=== PATIENT | female | born 1935 | race Caucasian/White ===

== ENCOUNTER 2017-02-03 12:34 | Emergency (ER) | payer OTHER ==
[2017-02-03] MEDS ORDERED: ASPIRIN PO STA (12:45)
[2017-02-03] MEDS ORDERED: NITROGLYCERIN SL PRN (12:45)
--- NOTE | 2017-02-03 12:56 | ED EKG INTERP ---
EKG Interpretation - EKG Time of EKG reading by physician:: 12:39 EKG Read and Signed by:: Demarco Perla EKG Interpretation (*Must complete 3 of following elements*): Abnormal Rate: 57 Rhythm: A-fib with SVR [place]: left ST Wave: non-specific ST changes Attestation - Scribe Verification/Attestation Scribe:: Dejuan Shah Acting as Scribe for:: Demarco Perla Scribe documention review:: This chart was documented by a scribe and accurately reflects the service the provider performed and the decisions made by the provider. Physician Attestation - Physician Attestation I, the provider, attest to the following statement:: Demarco Perla Physician documentation Attestation:: This documentation recorded by the scribe accurately reflects the service I personally performed and the decisions made by me.
[2017-02-03 13:10] LABS: MANUAL DIFF NEEDED? NO
[2017-02-03 13:15] LABS: BASO% 0.3 % (0.0-0.8); EOS# 0.04 X1000 (0.0-0.7); EOS% 0.7 % (0.0-10.0); HEMATOCRIT 50.8 % (37.0-47.0); HEMOGLOBIN 16.7 g/dL (12.0-16.0); LYMPH# 1.69 X1000 (1.2-3.4); LYMPH% 29.2 % (20.5-51.1); MCH 30.7 PG (27-31); MCHC 32.9 g/dL (33-37); MCV 93.4 FL (81-99); MONO# 0.42 X1000 (0.11-0.59); MONO% 7.3 % (1.7-9.3); MPV 11.3 FL (7.4-10.4); NEUT% 62.5 % (42.2-75.2); PLT 103 X1000 (130-400); RBC 5.44 XMIL (4.2-5.4)
[2017-02-03 13:42] LABS: ALBUMIN 4.4 g/dL (3.5-5.0); CALCIUM 9.4 mg/dL (8.8-10.2); MAGNESIUM 2.2 mg/dL (1.5-2.7); TOTAL BILIRUBIN 1.16 mg/dL (0.20-1.00); TOTAL PROTEIN 8.2 g/dL (6.3-8.3)
--- NOTE | 2017-02-03 15:03 | EKG Report ---
Test Performed on : 02/03/2017 12:39:36 PM Test Reason : Chest Pain Blood Pressure : / mmHG Vent. Rate : 057 BPM Atrial Rate : 039 BPM P-R Int : 000 ms QRS Dur : 084 ms QT Int : 390 ms P-R-T Axes : 000 -45 261 degrees QTc Int : 379 ms Atrial fibrillation. with slow ventricular response. Left axis deviation Possible Anterior infarct , age undetermined Abnormal ECG When compared with ECG of 26-MAY-2015 07:46, Borderline criteria for Anterior infarct are now present QT has shortened Unconfirmed Result
--- NOTE | 2017-02-03 15:36 | PROVIDER DOCUMENTATION ---
HPI-Chest Pain - General Chief Complaint: Chest Pain Stated Complaint: CP,SOB,ARM PAIN Time Seen by Provider: 02/03/17 14:27 Source: patient Allergies/Adverse Reactions: Patient Allergies Allergy/AdvReac Type Severity Reaction Status Date / Time codeine Allergy Unknown Unknown Verified 02/03/17 16:05 acetaminophen [From Tylenol] AdvReac NAUSEA Verified 02/03/17 16:05 Home Medications: Home Medication List Medication Instructions Recorded Confirmed Last Taken Type Aspirin 325 mg PO DAILY 02/11/14 02/03/17 05/25/15 08:00 History Digoxin [Digox] 125 mcg PO DAILY 02/11/14 02/03/17 05/25/15 08:00 History Diltiazem C.d. [Cardizem Cd] 120 mg PO DAILY 02/11/14 02/03/17 05/25/15 08:00 History Metoprolol [Lopressor] 25 mg PO BID 02/11/14 02/03/17 05/25/15 08:00 History Gabapentin [Neurontin] 400 mg PO TID #90 capsule 05/30/15 02/03/17 Unknown Rx Meclizine [Antivert] 25 mg PO TID PRN #30 tablet 05/30/15 02/03/17 Unknown Rx Methocarbamol [Robaxin-750] 750 mg PO Q6H PRN PRN #30 tablet 05/30/15 02/03/17 Unknown Rx Warfarin [Coumadin] 2 mg PO QHS #30 tablet 05/30/15 02/03/17 Unknown Rx - History of Present Illness-CP Nature of Presenting Problem: patient is a 81 yo F that presents that to the ER with 3 days of substernal chest pain that radiates to her back and shoulders. She reports also productive cough( white sputum) and n/v. patient reports pain increases with movement. Denies any diaphoresis or fever/chills. Location: reports: substernal Chest Pain Radiation: reports: shoulders, back Quality of Pain: reports: aching, dull Severity in ED: mild, moderate Onset/Duration: gradual, 3 days ago, 4 days ago Timing: still present, constant Context/Activities at Onset: reports: none Modifying Factors: worse with: movement Associated Symptoms: reports: nausea, shortness of breath, vomiting. denies: back pain, diaphoresis, dizziness, fatigue, fever/chills, swelling/lump in chest Nitro Today/Relief: 0.4 mg x 1, provided by ED Aspirin Treatment Today: 325 mg x 1, provided by ED Prior Chest Pain/Cardiac Workup: reports: other (a-fib) Recently Seen Here or By Another Healthcare Provider: No Review of Systems - Adult - REVIEW OF SYSTEMS - ADULT Constitutional: denies: chills, fever Eyes: reports: no symptoms reported Ears, Nose, Mouth & Throat: denies: ear discharge, ear pain, sinus problem, throat pain, throat swelling Cardiovascular: reports: chest pain. denies: palpitations, syncope Respiratory: reports: cough, excessive sputum production, pleurisy, shortness of breath. denies: wheezing Gastrointestinal: reports: nausea, vomiting. denies: abdominal pain, diarrhea Genitourinary: reports: no symptoms reported Musculoskeletal: reports: no symptoms reported Integumentary: reports: no symptoms reported Neurological: reports: no symptoms reported Psychiatric: reports: no symptoms reported Endocrine: reports: no symptoms reported Hematologic/Lymphatic: reports: no symptoms reported Allergic/Immunologic: reports: no symptoms reported All Other Systems: Reviewed and Negative Past History - Adult - PAST MEDICAL HISTORY-ADULT Review of Records: reports: Old Records Reviewed, Nursing Assessment Review, Medications Reviewed Cardiovascular: reports: A-Fib, HTN Neurological: reports: CVA Endocrine/Immune: reports: thyroid disorder (hypothyroid ) Other Conditions: reports: cataract/glaucoma (hx ) Additional History: inner ear problems - PRIOR SURGERIES/PROCEDURES Surgical/Procedure History: reports: appendectomy, cholecystectomy, hysterectomy , joint replacement (total hip replacement/total knee replacement), other ( cataract removal/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) - IMMUNIZATION STATUS Childhood Immunizations: See Nurse Assessment Flu Vaccine: See Nurse Assessment - FAMILY HISTORY Family History: reviewed, not pertinent - SOCIAL HISTORY Smoking: quit greater than 1 year, cigarettes Living Situation: family Physical Exam-General - PHYSICAL EXAM-ADULT Initial Vital Signs Reviewed: Yes - CONSTITUTIONAL General Appearance: alert, no apparent distress - EYES Eyes: PERRL/EOMI, pink conjunctivae - HEAD, EARS, NOSE, MOUTH & THROAT HENMT: normocephalic/atraumatic, moist mucous membranes, normal ENT inspection - NECK Neck: full range of motion, normal inspection. negative: lymphadenopathy - RESPIRATORY Respiratory: chest non-tender, lungs clear, normal breath sounds, no respiratory distress, no accessory muscle use - CARDIOVASCULAR Cardiovascular: no gallop, no murmur - GASTROINTESTINAL (ABDOMEN) Abdominal Exam: normal bowel sounds, non tender, soft - MUSCULOSKELETAL Extremity: normal range of motion, no pedal edema, normal capillary refill, pelvis stable - SKIN Integumentary: warm/dry, other (stasis dermatitis) - NEUROLOGIC Neurologic: grossly normal, no motor/sensory deficits - PSYCHIATRIC Psych/Mental Status: normal mood/affect, normal thought content, normal thought process, oriented x 3 Progress - PLAN OF CARE/RESULTS Progress/Plan/Lab Results: plan of care-cardiac work up Vital Signs Temp Pulse Resp BP Pulse Ox 02/03/17 16:13 60 20 153/88 99 02/03/17 12:35 97.6 F 59 L 20 160/100 98 codeine Allergy (Unknown, Verified 02/03/17 16:05) Unknown acetaminophen [From Tylenol] Adverse Reaction (Verified 02/03/17 16:05) NAUSEA Aspirin 325 mg PO DAILY 02/11/14 Digoxin [Digox] 125 mcg PO DAILY 02/11/14 Diltiazem C.d. [Cardizem Cd] 120 mg PO DAILY 02/11/14 Metoprolol [Lopressor] 25 mg PO BID 02/11/14 Gabapentin [Neurontin] 400 mg PO TID #90 capsule 05/30/15 Meclizine [Antivert] 25 mg PO TID PRN #30 tablet 05/30/15 Methocarbamol [Robaxin-750] 750 mg PO Q6H PRN PRN #30 tablet 05/30/15 Warfarin [Coumadin] 2 mg PO QHS #30 tablet 05/30/15 Laboratory 02/03/17 02/03/17 02/03/17 13:01 13:01 13:01 WBC RBC Hgb Hct MCV MCH MCHC RDW Std Deviation Plt Count MPV Neut % (Auto) Lymph % (Auto) Warren % (Auto) Eos % (Auto) Baso % (Auto) Neut # (Auto) Lymph # (Auto) Warren # (Auto) Eos # (Auto) Baso # (Auto) Sodium 140 Potassium 4.0 Chloride 100 Carbon Dioxide 24 L Anion Gap 16 BUN 15 Creatinine 0.9 Estimated GFR/1.73 m2 60 BUN/Creatinine Ratio 17 Glucose 82 Calculated Osmolality 279 Calcium 9.4 Magnesium 2.2 Total Bilirubin 1.16 H AST 28 ALT 12 Alkaline Phosphatase 99 Creatine Kinase 74 Troponin T < 0.010 [id number] Pept 1370 H Total Protein 8.2 Albumin 4.4 Globulin 3.8 Albumin/Globulin Ratio 1.2 02/03/17 13:01 WBC 5.78 RBC 5.44 H Hgb 16.7 H Hct 50.8 H MCV 93.4 MCH 30.7 MCHC 32.9 L RDW Std Deviation 13.8 Plt Count 103 L MPV 11.3 H Neut % (Auto) 62.5 Lymph % (Auto) 29.2 Warren % (Auto) 7.3 Eos % (Auto) 0.7 Baso % (Auto) 0.3 Neut # (Auto) 3.61 Lymph # (Auto) 1.69 Warren # (Auto) 0.42 Eos # (Auto) 0.04 Baso # (Auto) 0.02 Sodium Potassium Chloride Carbon Dioxide Anion Gap BUN Creatinine Estimated GFR/1.73 m2 BUN/Creatinine Ratio Glucose Calculated Osmolality Calcium Magnesium Total Bilirubin AST ALT Alkaline Phosphatase Creatine Kinase Troponin T Oyv-B-Uujjjptvhps Pept Total Protein Albumin Globulin Albumin/Globulin Ratio Orders Category Date Time Status Cardiac Monitoring DIRECTED Care 02/03/17 12:46 Active Saline Loc NOW Care 02/03/17 12:46 Active CHEST-2 VIEWS [RAD] Stat Exams 02/03/17 12:46 Taken CBC WITH ELECTRONIC DIFF [HEME] Stat Lab 02/03/17 13:01 Completed CK PROFILE [SP CHEM] Stat Lab 02/03/17 13:01 Completed COMPREHENSIVE METABOLIC PANEL [CHEM] Stat Lab 02/03/17 13:01 Completed D-DIMER [CHEM] Stat Lab 02/03/17 14:00 Ordered MAGNESIUM [CHEM] Stat Lab 02/03/17 13:01 Completed PRO B-NATRIURETIC PEPTIDE Stat Lab 02/03/17 13:01 Completed PROTIME WITH INR [COAG] Stat Lab 02/03/17 14:00 Ordered PTT [COAG] Stat Lab 02/03/17 14:00 Ordered TROPONIN T Stat Lab 02/03/17 13:01 Completed Aspirin Med 02/03/17 12:45 Discontinued 325 mg PO STAT STA Nitroglycerin Sl [Nitroglycerin] Med 02/03/17 12:45 Discontinued 0.4 mg SL Q5M PRN PRN EKG [EKG] Stat Ther 02/03/17 12:46 Draft pt will be d/c home, she will increase her lasix and spiralactone to daily instead of twice a week. she will f/u with pcp this week. pt understood instructions and results, pt was clinically stable - XRAY 1 XRAY Study: Chest Impression: Normal Departure - Departure Time of Disposition Order: 16:00 DIAGNOSIS: Heart failure, Polycythemia, Polymyalgia rheumatica Disposition: HOME 01 Certified Medical Emergency: Emergent Condition: Stable Additional Instructions: take 25 mg daily of lasix from 25mg twice a week Sprilactone up it 25 mg daily from 25 mg twice a week daily weights f/u with pcp ED Follow Up Instructions: You have been treated by a care provider in the Emergency Department. These instructions are being provided to you so you can have an understanding of how to care for yourself upon discharge. Upon discharge from the Emergency Department, you are responsible for making arrangements for follow-up care by a physician of your choice. Take all prescribed medications as directed. Return to the Emergency Department immediately for any new or worsening symptoms. You may call the Physician Referral phone number at [phone] to obtain a list of Physicians who are taking new patients. Referrals: Jigar Mendez MD [Primary Care Provider] - Instructions: Polycythemia Vera, Polymyalgia Rheumatica, Heart Failure, Easy-to -Read Attestation - Scribe Verification/Attestation Scribe:: Dejuan Shah Acting as Scribe for:: Demarco Perla Scribe documention review:: This chart was documented by a scribe and accurately reflects the service the provider performed and the decisions made by the provider. Physician Attestation - Physician Attestation I, the provider, attest to the following statement:: Demarco Perla Physician documentation Attestation:: This documentation recorded by the scribe accurately reflects the service I personally performed and the decisions made by me.
[2017-02-03 16:13] VITALS: BP 153/88
--- NOTE | 2017-02-03 16:40 | Diag Imaging Result Document ---
PROCEDURE NAME: CHEST-2 VIEWS - 02/03/2017 CHEST X-RAY 2 VIEWS: COMPARISON: 07/13/2012. FINDINGS: There is cardiomegaly. The lungs are clear. Pulmonary vascularity is grossly normal. No pneumothorax or pleural effusion. Stable mild compression deformity at the lower thoracic spine. IMPRESSION: Cardiomegaly. No change from prior.
== END 2017-02-03 16:13 | disposition home or self-care (01) ==
LOC: ED 12:34
DX: I50.9 Heart failure, unspecified (principal); D75.1 Secondary polycythemia; M35.3 Polymyalgia rheumatica; R94.31 Abnormal electrocardiogram [ECG] [EKG]; R07.89 Other chest pain; M54.9 Dorsalgia, unspecified; M25.512 Pain in left shoulder; M25.511 Pain in right shoulder; Z79.899 Other long term (current) drug therapy; R05 Cough; R09.3 Abnormal sputum; R11.2 Nausea with vomiting, unspecified; R06.02 Shortness of breath; R09.1 Pleurisy; I87.2 Venous insufficiency (chronic) (peripheral); I48.91 Unspecified atrial fibrillation; I10 Essential (primary) hypertension; Z79.01 Long term (current) use of anticoagulants; Z79.82 Long term (current) use of aspirin; Z86.73 Personal history of transient ischemic attack (TIA), and cerebral infarction without residual deficits; Z96.649 Presence of unspecified artificial hip joint; Z87.891 Personal history of nicotine dependence
CPT/HCPCS: 71020; 80053; 82550; 83735; 83880; 84484; 85025; 93005; 99283